=== PATIENT | female | born 1955 | race Two or more races ===

== ENCOUNTER 2016-09-06 16:36 | Emergency (ER) | payer OTHER ==
[~2016-09-06] VITALS: Ht 167.6 cm; Wt 136.1 kg
[~2016-09-06 16:36] MED LIST: ALPR0.25 PO; AMLO10TA2; AMLO10TA2 PO; ATEN1TAB38 PO; CARI-277 PO; FURO80TA3 PO; INSUINJ3 SC; LOSA50TA26 PO; METO2.5T7 PO; NOR10T PO; OMEP20TA44 PO; ONDA4TAB5; PRAVASTATIN PO
[2016-09-06 18:00] LABS: Basophils # (auto) 0.1 uL; Basophils % (auto) 0.9 % (0.0-2.0); Eosinophils # (auto) 0.1 uL; Eosinophils % (auto) 1.5 % (0.0-7.0); Hematocrit 35.9 % (36.0-46.0); Hemoglobin 11.6 g/dL (12.2-16.2); Lymphocytes # (auto) 1.9 uL; Mean Corpuscular Hemoglobin 31.2 pg (28.0-32.0); Mean Corpuscular Hgb Conc. 32.4 g/dL (32.0-36.0); Mean Corpuscular Volume 96.4 fL (80.0-100.0); Mean Platelet Volume 9.4 fL (7.4-10.4); Monocytes # (auto) 0.6 uL; Monocytes % (auto) 8.4 % (0.0-12.0); Neutrophils # (auto) 4.3 uL; Neutrophils % (auto) 62.2 % (37.0-80.0); Platelet Count (auto) 248 10^3/uL (140-450); Red Cell Distribution Width 14.4 % (11.6-16.0); White Blood Cell 6.9 10^3/uL (4.4-10.8)
[2016-09-06 18:07] LABS: INR 1.06 (0.9-1.15); Prothrombin Time 11.4 sec (9.37-12.3)
[2016-09-06 18:19] LABS: Albumin 3.3 g/dL (3.4-5.0); Alkaline Phosphatase 127 U/L (45-117); Anion Gap 10 (5-15); Aspartate Aminotransferase 43 U/L (15-37); BUN/Creatinine Ratio 5.3; Bilirubin, Total 0.5 mg/dL (0.2-1.0); Blood Urea Nitrogen 20 mg/dL (7-18); Calcium 8.4 mg/dL (8.5-10.1); Carbon Dioxide 32 mmol/L (21-32); Chloride 95 mmol/L (98-107); GFR African American 16 mL/min; GFR Non-African American 13 mL/min; Glucose 203 mg/dL (74-106); Magnesium 2.4 mg/dL (1.6-2.6); Potassium 4.7 mmol/L (3.5-5.1); Sodium 137 mmol/L (136-145); Total Protein 8.1 g/dL (6.4-8.2)
[2016-09-06 18:33] LABS: B-Type Natriuretic Peptide 156.34 pg/mL (0-100); Temperature: 23.3 C (20.0-25.0)
[2016-09-06] MEDS ORDERED: cefTRIAXone 1GM/50ML D5W 50 ML IV ONE (19:15)
[2016-09-06] MEDS ORDERED: ASPirin 81 mg TAB PO ONE (19:15)
[2016-09-06] MEDS ORDERED: MORPHINE SULF INJ 2 MG/ML SYRINGE 1ML IV ONE (20:30)
[2016-09-06 22:57] VITALS: BP 132/55
== END 2016-09-06 23:18 | disposition short-term general hospital (02) ==
LOC: ER 16:36 → EDBD 16:36 → ER 23:18
CPT/HCPCS: 36415 ×2; 71010 ×2; 80053 ×2; 83735 ×2; 83880 ×2; 84484 ×2; 85025 ×2; 85610 ×2; 85730 ×2; 93005 ×2; 96361 ×2; 96374 ×2; 99285; J0696 ×2; J2270

== ENCOUNTER 2018-06-20 08:55 | Emergency (ER) | payer OTHER ==
[~2018-06-20] VITALS: Ht 167.6 cm; Wt 142.9 kg
[~2018-06-20 08:55] MED LIST changes: +AMLO10TA12; +AMLO10TA12 PO; -AMLO10TA2; -AMLO10TA2 PO
[2018-06-20] MEDS ORDERED: SODIUM CHLORIDE 0.9% 1,000 ML IV ONE (09:37)
[2018-06-20] MEDS ORDERED: BUSPIRONE (09:59)
[2018-06-20] MEDS ORDERED: LIDOCAINE/PRILOCAINE (09:59)
[2018-06-20] MEDS ORDERED: CLOPIDOGREL (09:59)
[2018-06-20] MEDS ORDERED: HUMULIN (09:59)
[2018-06-20] MEDS ORDERED: ATORVASTATIN (09:59)
[2018-06-20] MEDS ORDERED: NYSTPOW9 (09:59)
[2018-06-20] MEDS ORDERED: LEVEPOW (09:59)
[2018-06-20] MEDS ORDERED: HYDROXYZINE (09:59)
[2018-06-20] MEDS ORDERED: RANEXA (09:59)
[2018-06-20] MEDS ORDERED: ONDANSETRON (09:59)
[2018-06-20] MEDS ORDERED: TRAZODONE (09:59)
[2018-06-20 10:51] LABS: Alanine Aminotransferase 64 U/L (13-56); Albumin 2.5 g/dL (3.4-5.0); Anion Gap 13 (5-15); Calcium 8.3 mg/dL (8.5-10.1); Carbon Dioxide 26 mmol/L (21-32); Chloride 97 mmol/L (98-107); GFR African American 11 mL/min; GFR Non-African American 9 mL/min; Glucose 91 mg/dL (74-106); Magnesium 2.5 mg/dL (1.6-2.6); Potassium 4.5 mmol/L (3.5-5.1); Sodium 136 mmol/L (136-145)
[2018-06-20 10:57] LABS: Alkaline Phosphatase 338 U/L (45-117); Aspartate Aminotransferase 54 U/L (15-37); BUN/Creatinine Ratio 6.7; Bilirubin, Total 0.4 mg/dL (0.2-1.0); Blood Urea Nitrogen 33 mg/dL (7-18); Total Protein 7.6 g/dL (6.4-8.2)
[2018-06-20 14:02] LABS: Basophils # (auto) 0.1 uL; Basophils % (auto) 0.6 % (0.0-2.0); Eosinophils # (auto) 0.2 uL; Eosinophils % (auto) 2.4 % (0.0-7.0); Hematocrit 31.4 % (36.0-46.0); Hemoglobin 10.1 g/dL (12.2-16.2); Lymphocytes # (auto) 1.8 uL; Lymphocytes % (auto) 19.5 % (10.0-50.0); Mean Corpuscular Hemoglobin 29.5 pg (28.0-32.0); Mean Corpuscular Hgb Conc. 32.1 g/dL (32.0-36.0); Mean Corpuscular Volume 91.9 fL (80.0-100.0); Monocytes # (auto) 0.6 uL; Monocytes % (auto) 6.3 % (0.0-12.0); Neutrophils # (auto) 6.5 uL; Neutrophils % (auto) 71.2 % (37.0-80.0); Platelet Count (auto) 224 10^3/uL (140-450); Red Blood Cells 3.42 10^6/uL (4.0-5.20); Red Cell Distribution Width 16.3 % (11.8-14.3); White Blood Cell 9.1 10^3/uL (4.4-10.8)
[2018-06-20] MEDS ORDERED: HYDROcodone-ACET 5/325MG TAB PO ONE (14:15)
[2018-06-20] MEDS ORDERED: cefTRIAXone 1GM/50ML D5W 50 ML IV ONE (16:45)
[2018-06-20] MEDS ORDERED: cefTRIAXone SOD 1,000 MG VL ONE (16:51)
[2018-06-20 20:57] VITALS: BP 95/42
== END 2018-06-20 16:59 | disposition short-term general hospital (02) ==
LOC: EDBD 08:55 → ER 09:01
DX: M47.896 Other spondylosis, lumbar region (principal); M47.892 Other spondylosis, cervical region; E66.01 Morbid (severe) obesity due to excess calories; I13.2 Hypertensive heart and chronic kidney disease with heart failure and with stage 5 chronic kidney disease, or end stage renal disease; E11.22 Type 2 diabetes mellitus with diabetic chronic kidney disease; N18.6 End stage renal disease; I50.9 Heart failure, unspecified; R94.5 Abnormal results of liver function studies; E46 Unspecified protein-calorie malnutrition; L30.9 Dermatitis, unspecified; E78.5 Hyperlipidemia, unspecified; Z68.43 Body mass index [BMI] 50.0-59.9, adult; Z79.899 Other long term (current) drug therapy; Z88.8 Allergy status to other drugs, medicaments and biological substances; Z99.2 Dependence on renal dialysis; Z88.6 Allergy status to analgesic agent; W19.XXXA Unspecified fall, initial encounter; Y93.89 Activity, other specified; Y99.8 Other external cause status; Y92.009 Unspecified place in unspecified non-institutional (private) residence as the place of occurrence of the external cause
CPT/HCPCS: 36415; 71045; 72125; 72131; 80053; 82962; 83735; 83880; 84443; 84484; 85025; 93005; 94761; 96365; 99285; J0696; J7030

== ENCOUNTER 2019-04-30 01:45 | Emergency (ER) | payer OTHER ==
[~2019-04-30] VITALS: Ht 154.9 cm; Wt 136.1 kg
[~2019-04-30 01:45] MED LIST changes: -AMLO10TA12; -AMLO10TA12 PO; +AMLO10TA13; +AMLO10TA13 PO; +ATORVASTATIN; +BUSPIRONE; +CLOPIDOGREL; +HUMULIN; +HYDROXYZINE; +LEVEPOW; +LIDOCAINE/PRILOCAINE; +NYSTPOW9; +ONDA-144; -ONDA4TAB5; +ONDANSETRON; +RANEXA; +TRAZODONE
[2019-04-30 04:07] LABS: Basophils # (auto) 0 uL; Basophils % (auto) 0.7 % (0.0-2.0); Eosinophils # (auto) 0.1 uL; Eosinophils % (auto) 1.8 % (0.0-7.0); Hematocrit 31.6 % (36.0-46.0); Hemoglobin 10.7 g/dL (12.2-16.2); Lymphocytes # (auto) 1.2 uL; Lymphocytes % (auto) 17.3 % (10.0-50.0); Mean Corpuscular Hemoglobin 30.6 pg (28.0-32.0); Mean Corpuscular Hgb Conc. 33.8 g/dL (32.0-36.0); Mean Corpuscular Volume 90.6 fL (80.0-100.0); Monocytes # (auto) 0.4 uL; Monocytes % (auto) 5.9 % (0.0-12.0); Neutrophils # (auto) 5.2 uL; Neutrophils % (auto) 74.3 % (37.0-80.0); Platelet Count (auto) 144 10^3/uL (140-450); Red Blood Cells 3.48 10^6/uL (4.0-5.20); Red Cell Distribution Width 14.8 % (11.8-14.3)
[2019-04-30 04:15] LABS: Albumin 2.5 g/dL (3.4-5.0); BUN/Creatinine Ratio 5.7; Calcium 8.4 mg/dL (8.5-10.1); Potassium 4.6 mmol/L (3.5-5.1)
[2019-04-30 04:17] LABS: Bilirubin, Total 0.9 mg/dL (0.2-1.0); Total Protein 7.2 g/dL (6.4-8.2)
[2019-04-30 04:51] LABS: INR 1.4 (0.9-1.15); Partial Thromboplastin Time 38.6 sec (23.64-32.05)
[2019-04-30] MEDS ORDERED: MORPHINE SULFATE 4 MG/ML SYR/VIAL IV ONE (05:15)
[2019-04-30] MEDS ORDERED: ONDANSETRON HCL 4 MG/2 ML VIAL IV ONE (05:15)
[2019-04-30 09:35] VITALS: BP 169/75
== END 2019-04-30 10:01 | disposition short-term general hospital (02) ==
LOC: EDBD 01:45 → ER 01:49
DX: F03.90 Unspecified dementia, unspecified severity, without behavioral disturbance, psychotic disturbance, mood disturbance, and anxiety (principal); I67.4 Hypertensive encephalopathy; I13.2 Hypertensive heart and chronic kidney disease with heart failure and with stage 5 chronic kidney disease, or end stage renal disease; E11.22 Type 2 diabetes mellitus with diabetic chronic kidney disease; N18.6 End stage renal disease; I50.9 Heart failure, unspecified; Z99.2 Dependence on renal dialysis; Z79.4 Long term (current) use of insulin; Z79.899 Other long term (current) drug therapy; Z88.8 Allergy status to other drugs, medicaments and biological substances
CPT/HCPCS: 36415; 70450; 71045; 73700; 80053; 83605; 85025; 85610; 85730; 87040; 93005; 96374; 96375; 99285; J2270; J2405

== ENCOUNTER 2019-06-12 08:44 | Inpatient (IN) | payer OTHER ==
[~2019-06-12] VITALS: Ht 157.5 cm; Wt 135.6 kg
[2019-06-12 10:00] LABS: Albumin 2.7 g/dL (3.4-5.0); BUN/Creatinine Ratio 8.5; Basophils # (auto) 0.1 uL; Basophils % (auto) 0.9 % (0.0-2.0); Calcium 8.4 mg/dL (8.5-10.1); Eosinophils # (auto) 0.1 uL; Eosinophils % (auto) 1.9 % (0.0-7.0); Hemoglobin 9.7 g/dL (12.2-16.2); Lymphocytes # (auto) 1.8 uL; Lymphocytes % (auto) 22.5 % (10.0-50.0); Magnesium 2.3 mg/dL (1.6-2.6); Mean Corpuscular Hemoglobin 30.5 pg (28.0-32.0); Mean Corpuscular Hgb Conc. 33.3 g/dL (32.0-36.0); Mean Corpuscular Volume 91.6 fL (80.0-100.0); Monocytes # (auto) 0.4 uL; Monocytes % (auto) 5.6 % (0.0-12.0); Neutrophils # (auto) 5.4 uL; Neutrophils % (auto) 69.1 % (37.0-80.0); Platelet Count (auto) 177 10^3/uL (140-450); Potassium 5.1 mmol/L (3.5-5.1); Red Blood Cells 3.16 10^6/uL (4.0-5.20); Red Cell Distribution Width 17.5 % (11.8-14.3); White Blood Cell 7.8 10^3/uL (4.4-10.8)
[2019-06-12 10:51] LABS: INR 1.26 (0.9-1.15); Partial Thromboplastin Time 33.7 sec (23.64-32.05)
[2019-06-12] MEDS ORDERED: SODIUM CHLORIDE 0.9% 1,000 ML IV ONE (10:57)
[2019-06-12] MEDS ORDERED: FUROSEMIDE 40 MG/4 ML VIAL IV ONE (13:00)
[2019-06-12] MEDS ORDERED: hydrALAZINE HCL 20 MG/ML VL IV PRN (17:15)
[2019-06-12] MEDS ORDERED: DEXTROSE (50%) 50ML SYRG IV PRN (17:15)
[2019-06-12] MEDS ORDERED: SODIUM ZIRCONIUM CYCL 10 GM PAK PO ONE (17:15)
[2019-06-12] MEDS ORDERED: NITROGLYCERIN 0.4 MG SL TAB SL PRN (17:15)
[2019-06-12] MEDS ORDERED: MORPHINE SULF INJ 2 MG/ML SYRINGE 1ML IV PRN (17:15)
--- NOTE | 2019-06-12 19:56 | NUR ---
received pt from er nurse poc reviewed,
[2019-06-12 20:20] VITALS: BP 153/72
[2019-06-12] MEDS ORDERED: ATOR1TAB PO (20:33)
[2019-06-12] MEDS ORDERED: BUSP5TAB51 PO (20:35)
[2019-06-12] MEDS ORDERED: HYDR-4924 PO (20:35)
[2019-06-12] MEDS ORDERED: DICY10CA12 PO (20:39)
[2019-06-12] MEDS ORDERED: ERGO1CAP6 PO (20:39)
[2019-06-12] MEDS ORDERED: CLOP75TA41 PO (20:39)
[2019-06-12] MEDS ORDERED: BISO5TAB44 PO (20:39)
[2019-06-12] MEDS ORDERED: LEVE250T18 PO (20:39)
[2019-06-12] MEDS ORDERED: SEVE800T10 PO (20:39)
[2019-06-12 21:14] VITALS: BP 153/72
--- NOTE | 2019-06-12 21:37 | NUR ---
Midline Placement: Patient educated on need for midline placement. All risks and benefits explained and all questions and concerns addresses prior to procedure. 4Fr 20cm midline inserted via right brachial vein using Ultrasound. Sterile technique utilized. Blood return obtained from SINGLE lumen and flushed easily with NS using proper technique. Midline secured with saline lock; biodisc and occlusive dressing applied. Primary RN notified. Midline lot #[id number]. INTERNAL LENGTH 20CM EXTERNAL LENGTH 0CM
[2019-06-12] MEDS: InsuLIN REG 1unit/0.01ml Soln (100units/ml) SC SCH (22:00)
--- NOTE | 2019-06-12 22:30 | NUR ---
PT HAS PERIODS OF CONFUSION, BED ALARM PIPE WASHER LIGHT WITHIN REACH, REORIENTED PT TO POC
--- NOTE | 2019-06-12 22:30 | NUR ---
PTS BS 51 CHEN AND JUICE GIVEN, WILL RECHECK
[2019-06-13] MEDS: metroNIDAZOLE 500MG/100ML 100 ML IV SCH ×4 (01:10→22:50)
[2019-06-13] MEDS: CARVEDILOL 3.125 MG TAB PO SCH ×3 (01:11→22:49)
[2019-06-13] MEDS: ACCU-CHEK COMFORT CURVE STRIP VI SCH ×5 (01:12→22:00)
--- NOTE | 2019-06-13 01:59 | NUR ---
PT CONFUSED PULLING OFF ALL CLOTHES, REORIENTED PT TO POC , CALL LIGHT WITHIN REACH, BED ALARM INTACT
--- NOTE | 2019-06-13 03:00 | NUR ---
PARTIAL BED BATH GIVEN TURNED AND REPOSITIONED WITH HOB UP
--- NOTE | 2019-06-13 04:25 | NUR ---
PICTURES TAKEN OF ALL WOUNDS, DRESSING APPLIED
--- NOTE | 2019-06-13 05:27 | NUR ---
PT CONTINUE TO BE CONFUSED, TURNED AND REPOSITIONED, WITH HOB UP RESP EVEN AND UNLABORED
--- NOTE | 2019-06-13 05:55 | NUR ---
DIALYSIS NURSE AT BEDSIDE
[2019-06-13] MEDS: InsuLIN REG 1unit/0.01ml Soln (100units/ml) SC SCH ×4 (06:02→22:00)
[2019-06-13 06:20] LABS: Basophils # (auto) 0.1 uL; Basophils % (auto) 0.8 % (0.0-2.0); Eosinophils # (auto) 0.1 uL; Eosinophils % (auto) 1.6 % (0.0-7.0); Hematocrit 29.1 % (36.0-46.0); Hemoglobin 9.6 g/dL (12.2-16.2); Lymphocytes # (auto) 1.7 uL; Lymphocytes % (auto) 22.6 % (10.0-50.0); Mean Corpuscular Hemoglobin 30.4 pg (28.0-32.0); Mean Corpuscular Volume 92.3 fL (80.0-100.0); Monocytes # (auto) 0.4 uL; Monocytes % (auto) 5.5 % (0.0-12.0); Neutrophils # (auto) 5.1 uL; Neutrophils % (auto) 69.5 % (37.0-80.0); Platelet Count (auto) 190 10^3/uL (140-450); Red Blood Cells 3.15 10^6/uL (4.0-5.20); Red Cell Distribution Width 17.3 % (11.8-14.3); White Blood Cell 7.4 10^3/uL (4.4-10.8)
[2019-06-13 06:38] LABS: Potassium 5.2 mmol/L (3.5-5.1)
[2019-06-13 06:46] LABS: Albumin 2.7 g/dL (3.4-5.0); BUN/Creatinine Ratio 8.3; Calcium 8.2 mg/dL (8.5-10.1); Total Protein 7.8 g/dL (6.4-8.2)
--- NOTE | 2019-06-13 06:53 | NUR ---
REPORT GIVEN TO AM NURSE POC REVIEWED
[2019-06-13] MEDS ORDERED: SODIUM CHL 0.9% 1000 ML BAG XX ONE (07:00)
[2019-06-13 09:00] VITALS: BP 118/96
--- NOTE | 2019-06-13 09:22 | NUR ---
DIALYSIS PER JOSUE BEHAVIOR CLINICIAN, 4 L REMOVED, 72HR 152/83 BP. PRESSURE DRESSING PLACED TO JOE FISTULA
[2019-06-13] MEDS: cefTRIAXone 1GM/50ML D5W 50 ML IV SCH (09:52)
[2019-06-13] MEDS: FAMOTIDINE 20 MG TAB PO SCH (09:54)
--- NOTE | 2019-06-13 10:10 | NUR ---
LAB MRSA SWAB SENT PER MD ORDER
--- NOTE | 2019-06-13 11:15 | NUR ---
WOUND CARE NOTE: IN TO SEE PATIENT AT THIS TIME PER WOUND CARE CONSULT REQUEST. PATIENT WAS NOTED TO HAVE WOUNDS UPON ADMIT. BEDSIDE NURSE PHOTOGRAPHED WOUNDS AT THAT TIME FOR REFERENCE. PATIENT ADMITTED TO [facility] WITH DIAGNOSIS OF ACUTE/CHRONIC SYSTOLIC HEART FAILURE. CURRENT ELEONORA SCORE IS 16. PATIENT IS ABLE TO SELF TURN/REPOSITION SELF. SHE IS WHEELCHAIR BOUND AT HOME. PATIENT IS NOTED TO HAVE UNSTAGEABLE PRESSURE INJURY OVER SCAR TO INTRAGLUTEAL SACRUM, LEFT ISCHIUM, A DFU TO LEFT LATERAL FOOT, CALLOUSED WOUNDS TO LEFT # 2,3 FINGERS, FUNGAL NAILS WITH XEROSIS/HYPERKERATOSIS TO BILATERAL FEET/LOWER LEGS, SCABBED WOUNDS TO RLE X 2. APPLIED THERAHONEY AND OPTIFOAM GENTLE DRESSINGS TO OPEN WOUNDS ON SACRUM, LEFT ISCHIUM, AND LEFT LATERAL FOOT. SPECIALTY AIR MATTRESS ORDERED AT THIS TIME. PATIENT TO BE PLACED, PENDING DELIVERY BY BRIAN WEISS. RECOMMEND: FREQUENT TURN SCHEDULE Q 2 HOURS, PRN CONDITION PERMITS, WITH PRESSURE REDISTRIBUTION USING PILLOWS/WEDGES, SPECIALTY AIR MATTRESS, DAILY/PRN DRESSING CHANGES TO SACRAL/L ISCHIUM WOUNDS, EOD/PRN DRESSING CHANGE TO LEFT FOOT WOUND, BID APPLICATION WITH HYDRAGUARD BARRIER CREAM TO BLE DRY SKIN, DIETARY CONSULT, SKIN/WOUND CARE PLAN, CONTINUED MONITORING BY WOUND CARE TEAM. Addendum: 06/13/19 at 1534 by Gay Gomez RN Amended: Links added.
[2019-06-13 13:01] VITALS: BP 145/63
[2019-06-13] MEDS ORDERED: AZITHROMYCIN 500MG/ 250ML 250 ML IV ONE (13:15)
--- NOTE | 2019-06-13 16:06 | NUR ---
Nutrition Assessment Notes Please refer to link for full nutrition assessment notes Est energy needs: [id number] kcals (12-15 kcals /kgBW) Est protein needs: 57-71 gms/day (0.8-1.0 gm/kgAdjBW) Will continue to monitor and reassess prn Addendum: 06/13/19 at [address] Amended: Links added.
--- NOTE | 2019-06-13 16:20 | NUR ---
MIDLINE PATIENT PULLED OUT MIDLINE. INFORMED METAL HANGING SUPERVISOR AND PICC RN
--- NOTE | 2019-06-13 16:35 | NUR ---
IV insertion IV access obtained, via clean sterile technique by [facility] gauge [facility] attempt. IV secured properly. No trauma to site. Patient tolerated procedure well.
[2019-06-13] MEDS ORDERED: MIDO2.5T15 PO (17:06)
[2019-06-13 17:09] VITALS: BP 168/93
[2019-06-13] MEDS ORDERED: NITR0.4S29 SL (17:14)
[2019-06-13] MEDS ORDERED: CYCL0.05 EACHEYE (17:14)
[2019-06-13] MEDS ORDERED: TRAZ-181 PO (17:14)
[2019-06-13] MEDS ORDERED: FLUT0.05 NAS (17:14)
[2019-06-13] MEDS ORDERED: ROPI2TAB31 PO (17:14)
[2019-06-13] MEDS ORDERED: SILV-21 TOP (17:14)
[2019-06-13] MEDS ORDERED: RANO500T2 PO (17:14)
[2019-06-13] MEDS ORDERED: NYS5LQ MT (17:14)
[2019-06-13] MEDS ORDERED: IPR002IS HHN (17:14)
[2019-06-13] MEDS ORDERED: THIA100T10 PO (17:14)
[2019-06-13] MEDS ORDERED: FOLI1TAB6 PO (17:14)
[2019-06-13 20:00] VITALS: BP 145/63
[2019-06-13] MEDS ORDERED: HALOPERIDOL LACTATE 5 MG/ML INJ VIAL IM PRN (21:30)
[2019-06-13 22:00] VITALS: BP 146/56
[2019-06-13 22:01] LABS: Folate (Folic Acid) > 24.00 ng/mL (5.38-24)
--- NOTE | 2019-06-13 22:58 | NUR ---
PT YELLING AND SCREAMING AT THE NURSE BECAUSE SHE RECEIVED A PHONE CALL AND GRABBED THE PHONE DISCONNECTING THE CALL.PT STATES THE NURSES HERE ARE NOT DOCTORS SO SHE DOESNT TRUST THEM.PT SPIT OUT HER COREG AND REFUSED TO TAKE IT.ROB TORRES PRIVY TO PT'S REFUSAL OF HER MEDS. PT ANSWERS QUESTIONS APPROPRIATELY AND STATES SHE IS TIRED OF BEING HERE AND WANTS TO GO HOME. SITTER AT BEDSIDE.
[2019-06-14] MEDS: InsuLIN REG 1unit/0.01ml Soln (100units/ml) SC SCH ×3 (05:23→17:00)
[2019-06-14 06:02] VITALS: BP 170/73
[2019-06-14] MEDS: ACCU-CHEK COMFORT CURVE STRIP VI SCH ×3 (06:09→17:00)
[2019-06-14] MEDS: metroNIDAZOLE 500MG/100ML 100 ML IV SCH ×2 (06:09→14:15)
[2019-06-14] MEDS: cefTRIAXone 1GM/50ML D5W 50 ML IV SCH (08:49)
[2019-06-14 09:00] VITALS: BP 152/95
[2019-06-14] MEDS: CARVEDILOL 3.125 MG TAB PO SCH (09:34)
[2019-06-14] MEDS: FAMOTIDINE 20 MG TAB PO SCH (09:34)
[2019-06-14] MEDS ORDERED: AZITHROMYCIN 500MG/ 250ML 250 ML IV SCH (10:00)
--- NOTE | 2019-06-14 10:11 | NUR ---
ON UNIT PATIENT RETURNED FROM [facility]. PATIENT REFUSED VQ SCAN. WILL NOTIFY
--- NOTE | 2019-06-14 10:50 | NUR ---
PHONE CALL RECEIVED PHONE CALL FROM STEVE FROM [facility] RE: PATIENT TRANSFER TO [facility]
[2019-06-14 13:00] VITALS: BP 150/75
--- NOTE | 2019-06-14 13:56 | NUR ---
[facility] PHONE CALL MARCO FROM [facility] CALLED RE: PATIENT STATUS ON ROOM. PATIENT BEING TRANSFERRED TO [facility]. DR JANIA SPEARS MD. ROOM #322. REPORT OT BE GIVEN TO JONATHAN . PICKUP WILL BE APPROXIMATELY AT 1630 Addendum: 06/14/19 at 1418 by JOYCE SANCHEZ RN RN CORRECT TIME SPEECH THERAPIST EARLY INTERVENTION 1830 NOT 1630
--- NOTE | 2019-06-14 14:45 | NUR ---
PT REFUSED ELECTROENCEPHALOGRAM. RN JOYCE AWARE.
--- NOTE | 2019-06-14 15:30 | NUR ---
EEG PATIENT REFUSED EEG
[2019-06-14 17:00] VITALS: BP 145/69
[2019-06-14] MEDS ORDERED: LORazepam 2MG/ML-1ML VIAL IV PRN (17:00)
--- NOTE | 2019-06-14 17:00 | NUR ---
WOUND CARE WOUND CARE PERFORMED PER MD ORDERS. WOUND PHOTOS TAKEN
--- NOTE | 2019-06-14 18:50 | NUR ---
report report given to SHERYL Givens at [facility]. All questions/concerns answered.
--- NOTE | 2019-06-14 19:06 | NUR ---
[facility]IVED FOR TRANSPORT. NO S/S OF DISTRESS, SOB OR PAIN NOTED ON DEPARTURE
== END 2019-06-14 19:10 | disposition short-term general hospital (02) | DRG 70 ==
LOC: ER 08:44 → EDBD 08:44 → TELE 08:45 → TELE-CENTR 20:12
PROVIDERS: ADMIT Nurse Practitioner Acute Care; ATTEND Family Medicine
PROC: 5A1D70Z Performance of Urinary Filtration, Intermittent, Less than 6 Hours Per Day (ICD-10-PCS; principal; 2019-06-13)
DX: G93.41 Metabolic encephalopathy (principal); I50.23 Acute on chronic systolic (congestive) heart failure; N18.6 End stage renal disease; J18.9 Pneumonia, unspecified organism; I48.20 Chronic atrial fibrillation, unspecified; I13.2 Hypertensive heart and chronic kidney disease with heart failure and with stage 5 chronic kidney disease, or end stage renal disease; D68.59 Other primary thrombophilia; Z68.43 Body mass index [BMI] 50.0-59.9, adult; E87.5 Hyperkalemia; E66.01 Morbid (severe) obesity due to excess calories; I25.10 Atherosclerotic heart disease of native coronary artery without angina pectoris; F29 Unspecified psychosis not due to a substance or known physiological condition; D63.8 Anemia in other chronic diseases classified elsewhere; E11.621 Type 2 diabetes mellitus with foot ulcer; L97.519 Non-pressure chronic ulcer of other part of right foot with unspecified severity; I48.91 Unspecified atrial fibrillation; E11.22 Type 2 diabetes mellitus with diabetic chronic kidney disease; F32.9 Major depressive disorder, single episode, unspecified; E11.40 Type 2 diabetes mellitus with diabetic neuropathy, unspecified; E78.5 Hyperlipidemia, unspecified; L97.529 Non-pressure chronic ulcer of other part of left foot with unspecified severity; Z99.2 Dependence on renal dialysis; Z91.14 Patient's other noncompliance with medication regimen; Z95.5 Presence of coronary angioplasty implant and graft; Z79.899 Other long term (current) drug therapy; Z83.3 Family history of diabetes mellitus; Z82.49 Family history of ischemic heart disease and other diseases of the circulatory system; Z91.15 Patient's noncompliance with renal dialysis
CPT/HCPCS: 36415; 70450; 71045; 80053; 82607; 82746; 82962; 83036; 83690; 83735; 84443; 84484; 85025; 85379; 85610; 85730; 87040; 87077; 87081; 87186; 87804; 90935; 93005; 93970; 97163; G0378; J0696; J1642; J1815; J3490

== ENCOUNTER 2019-09-17 09:20 | Inpatient (IN) | payer OTHER ==
[~2019-09-17] VITALS: Ht 170.2 cm; Wt 128.3 kg
[~2019-09-17 09:20] MED LIST changes: -ALPR0.25 PO; -AMLO10TA13; -AMLO10TA13 PO; -ATEN1TAB38 PO; +ATOR1TAB PO; -ATORVASTATIN; +BUSP5TAB51 PO; -BUSPIRONE; -CARI-277 PO; +CLOP75TA41 PO; -CLOPIDOGREL; +CYCL0.05 EACHEYE; +DICY10CA12 PO; +ERGO1CAP6 PO; +FLUT0.05 NAS; +FOLI1TAB6 PO; -FURO80TA3 PO; -HUMULIN; +HYDR-4924 PO; -HYDROXYZINE; +IPR002IS HHN; +LEVE250T18 PO; -LEVEPOW; -LIDOCAINE/PRILOCAINE; -LOSA50TA26 PO; -METO2.5T7 PO; +MIDO2.5T15 PO; +NITR0.4S29 SL; +NYS5LQ MT; -NYSTPOW9; -OMEP20TA44 PO; -ONDANSETRON; -PRAVASTATIN PO; -RANEXA; +RANO500T2 PO; +ROPI2TAB31 PO; +SEVE800T10 PO; +SILV-21 TOP; +THIA100T10 PO; +TRAZ-181 PO; -TRAZODONE
[2019-09-17 10:34] LABS: Basophils # (auto) 0.1 10 ^3/uL (0-0.2); Basophils % (auto) 0.6 % (0.0-2.0); Eosinophils # (auto) 0.1 10 ^3/uL (0-0.8); Eosinophils % (auto) 1.1 % (0.0-7.0); Hematocrit 31.5 % (36.0-46.0); Hemoglobin 10.1 g/dL (12.2-16.2); Lymphocytes # (auto) 1.3 10 ^3/uL (0.4-5.4); Lymphocytes % (auto) 16.2 % (10.0-50.0); Mean Corpuscular Volume 90.6 fL (80.0-100.0); Monocytes # (auto) 0.6 10 ^3/uL (0-1.3); Monocytes % (auto) 7.8 % (0.0-12.0); Neutrophils # (auto) 6.1 10 ^3/uL (1.6-8.6); Neutrophils % (auto) 74.3 % (37.0-80.0); Platelet Count (auto) 169 10^3/uL (140-450); Red Blood Cells 3.48 10^6/uL (4.0-5.20); Red Cell Distribution Width 15.8 % (11.8-14.3); White Blood Cell 8.2 10^3/uL (4.4-10.8)
[2019-09-17 10:53] LABS: INR 1.25 (0.9-1.15); Partial Thromboplastin Time 33.6 sec (23.64-32.05)
[2019-09-17] MEDS ORDERED: cefTRIAXone 1GM/50ML D5W 50 ML IV ONE (11:30)
[2019-09-17] MEDS ORDERED: AZITHROMYCIN 500MG/ 250ML 250 ML IV ONE (11:30)
[2019-09-17 12:19] LABS: Albumin 2.2 g/dL (3.4-5.0); Calcium 8.8 mg/dL (8.5-10.1); Potassium 5.1 mmol/L (3.5-5.1)
[2019-09-17 12:23] LABS: BUN/Creatinine Ratio 11.6; Total Protein 7.2 g/dL (6.4-8.2)
--- NOTE | 2019-09-17 14:05 | NUR ---
Telemetry admit from ER HEATHER MOY admitted to Telemetry unit after SBAR received. Patient oriented to Megha Laguerre, primary RN, unit, room, bed, and unit policies regarding patient care and visiting hours. Patient now on continuous telemetry monitoring, tele box # 11 and telemetry reading on arrival to unit is . Patient placed on bedside oxygen, weighed by bedscale and encouraged to call if they need something. All questions and concerns addressed, patient verbalized understanding. Note:
[2019-09-17] MEDS ORDERED: HYDROcodone-ACET 5/325MG TAB PO PRN (14:45)
[2019-09-17] MEDS ORDERED: DEXTROSE (50%) 50ML SYRG IV PRN (14:45)
[2019-09-17] MEDS ORDERED: MORPHINE SULF INJ 2 MG/ML SYRINGE 1ML IV PRN (14:45)
[2019-09-17] MEDS ORDERED: NITROGLYCERIN 0.4 MG SL TAB SL PRN (14:45)
[2019-09-17] MEDS ORDERED: ACETAMINOPHEN 500 MG TAB PO PRN (14:45)
[2019-09-17] MEDS: metroNIDAZOLE 500MG/100ML 100 ML IV SCH ×2 (14:48→21:58)
[2019-09-17] MEDS ORDERED: VANCOMYCIN PER PHARMACY 0 MG IV SCH (15:00)
[2019-09-17] MEDS ORDERED: VANCOMYCIN 1GM/250ML 250 ML IV ONE (15:10)
[2019-09-17] MEDS ORDERED: SODIUM ZIRCONIUM CYCL 10 GM PAK PO ONE (16:00)
[2019-09-17 17:00] VITALS: BP 127/55
[2019-09-17] MEDS: ACCU-CHEK COMFORT CURVE STRIP VI SCH ×2 (17:09→21:58)
[2019-09-17] MEDS: InsuLIN REG 1unit/0.01ml Soln (100units/ml) SC SCH ×2 (17:41→21:50)
[2019-09-17] MEDS: MORPHINE SULF INJ 2 MG/ML SYRINGE 1ML IV PRN (17:41)
[2019-09-17 18:17] VITALS: BP 127/55
--- NOTE | 2019-09-17 20:00 | NUR ---
open note assumed care of pt. upon entering room pt awake, alert and oriented x4. pt on 2L no dsitress noted or expressed. pt denied any pain. pt updated on plan of care. pt bed locked, low and 2x rails up. call light in reach, this nurse to round q1hr and prn. pt on iso for covid rule out.
[2019-09-17 21:45] VITALS: BP 127/50
[2019-09-17] MEDS: busPIRone HCL 10 MG TAB PO SCH (21:58)
[2019-09-17] MEDS: FAMOTIDINE 20 MG TAB PO SCH (21:58)
[2019-09-17] MEDS ORDERED: PATIENTS OWN MEDICATION (Buspirone Hcl 5 MG) PO SCH (22:00)
[2019-09-18] MEDS: MORPHINE SULF INJ 2 MG/ML SYRINGE 1ML IV PRN ×2 (02:50→17:14)
[2019-09-18 04:47] VITALS: BP 152/77
[2019-09-18 04:55] LABS: Basophils # (auto) 0 10 ^3/uL (0-0.2); Basophils % (auto) 0.5 % (0.0-2.0); Eosinophils # (auto) 0.2 10 ^3/uL (0-0.8); Eosinophils % (auto) 1.9 % (0.0-7.0); Hematocrit 32.4 % (36.0-46.0); Hemoglobin 10.3 g/dL (12.2-16.2); Lymphocytes # (auto) 1.4 10 ^3/uL (0.4-5.4); Lymphocytes % (auto) 16.4 % (10.0-50.0); Mean Corpuscular Hemoglobin 29.2 pg (28.0-32.0); Mean Corpuscular Hgb Conc. 31.9 g/dL (32.0-36.0); Mean Corpuscular Volume 91.7 fL (80.0-100.0); Monocytes # (auto) 0.5 10 ^3/uL (0-1.3); Monocytes % (auto) 6.2 % (0.0-12.0); Neutrophils # (auto) 6.5 10 ^3/uL (1.6-8.6); Platelet Count (auto) 173 10^3/uL (140-450); Red Blood Cells 3.53 10^6/uL (4.0-5.20); Red Cell Distribution Width 15.8 % (11.8-14.3); White Blood Cell 8.7 10^3/uL (4.4-10.8)
--- NOTE | 2019-09-18 05:10 | NUR ---
Report given to Mckenna SAUCEDO for transfer to room 218A.
[2019-09-18 05:11] LABS: BUN/Creatinine Ratio 11.5; Calcium 8.9 mg/dL (8.5-10.1); Potassium 4.9 mmol/L (3.5-5.1)
[2019-09-18 05:21] LABS: INR 1.33 (0.9-1.15); Partial Thromboplastin Time 34.9 sec (23.64-32.05)
--- NOTE | 2019-09-18 05:30 | NUR ---
ASSUMED CARE OF PATIENT REPORT RECEIVED FROM MELISSA SAUCEDO. NO ACUTE S/S OF DISTRESS NOTED. WILL CONTINUE CARE.
[2019-09-18] MEDS: metroNIDAZOLE 500MG/100ML 100 ML IV SCH ×3 (06:35→22:02)
[2019-09-18] MEDS: ACCU-CHEK COMFORT CURVE STRIP VI SCH ×4 (06:35→22:03)
[2019-09-18] MEDS: InsuLIN REG 1unit/0.01ml Soln (100units/ml) SC SCH ×4 (06:35→22:07)
[2019-09-18] MEDS ORDERED: ALBUMIN 25% 100 ML IV ONE (07:45)
[2019-09-18] MEDS ORDERED: SODIUM CHL 0.9% 1000 ML BAG XX ONE (07:45)
--- NOTE | 2019-09-18 08:00 | NUR ---
Opening Shift Note Received report from night nurse. Assumed care of patient, patient laying in bed with HOB elevated, A&Ox4. Respirations are even and non-labored, no S/S of distress or SOB noted, denies any pain at the moment. Patient instructed on POC and to call for assistance as needed, call light within reach. Safety measures in place, bed set to lowest locked position x 2 rails up. Will continue to monitor for changes Q1hr and PRN.
[2019-09-18] MEDS ORDERED: LIDOCAINE HCL 5 % TOP OINT 35 GM TOP PRN (08:30)
[2019-09-18 09:00] VITALS: BP 130/49
[2019-09-18] MEDS ORDERED: cefTRIAXone 1GM/50ML D5W 50 ML IV SCH (09:00)
[2019-09-18] MEDS ORDERED: MIDODRINE HCL 10 MG TAB PO ONE (09:15)
--- NOTE | 2019-09-18 10:15 | NUR ---
[facility] Call received from Ballast Cleaning Operator form [facility]. Updated on requested information, verbalized understanding.
--- NOTE | 2019-09-18 10:45 | NUR ---
WOUND CARE NOTE: WOUND CONSULT ORDERED FOR MULTIPLE WOUNDS. PATIENT ADMITTED TO [facility] WITH DIAGNOSIS OF BLE FOOT ULCERS, CURRENT ELEONORA SCORE IS 15. WOUND PHOTOS TAKEN OF WOUNDS ON SACRUM, BILATERAL FEET/HEELS FOR REFERENCE BY BEDSIDE NURSE, UPON ADMIT. ATTEMPTED TO SEE PATIENT AT THIS TIME, BUT PATIENT IS RECEIVING DIALYSIS. WILL ATTEMPT TO SEE AGAIN AT LATER TIME.
[2019-09-18] MEDS: busPIRone HCL 10 MG TAB PO SCH ×2 (12:03→22:02)
--- NOTE | 2019-09-18 12:04 | NUR ---
Nutrition Followup Notes Please see attached link for complete assessment Est. Needs ABW (93 kg): [id number] (20-23 kcal/kgABW r/t HD), 111-130 gms pro (1.2-1.4 gms/kgBW r/t HD wounds severe hypoalb). Will continue to monitor pertinent labs and reassess nutrient need prn Addendum: 09/18/19 at [address] Amended: Links added.
--- NOTE | 2019-09-18 12:20 | NUR ---
Contacted Radiology about patient's CT spoke with Leigh, she stated they needed clarification if CT to be done with or without contrast. Placed call to Dr. Bowers order clarified, CT to be done without contrast. Notified Leigh in Radiology she verbalized understanding.
[2019-09-18 13:00] VITALS: BP 153/88
--- NOTE | 2019-09-18 13:01 | NUR ---
1250 09/18/19 I faxed transfer order and Notice Regarding Post Stabilization to [facility]. I faxed today's MD progress notes, labs, vitals and medication list to [facility].
--- NOTE | 2019-09-18 14:47 | NUR ---
Radiology at Bedside. Taking patient down for CT of right foot
--- NOTE | 2019-09-18 16:00 | NUR ---
WOUND CARE NOTE: SPECIALTY AIR MATTRESS ORDERED AT THIS TIME. PATIENT TO BE PLACED, PENDING DELIVERY BY BRIAN CAMPOS
--- NOTE | 2019-09-18 16:47 | NUR ---
0788 09/18/19 I called [facility] and spoke with reimbursement analyst Edmund, she said they did receive the transfer order and Physical Damage Appraiser Umu is working on a bed assignment at [facility]. They will contact nurse's station when bed becomes available.
[2019-09-18 17:00] VITALS: BP 155/88
--- NOTE | 2019-09-18 17:30 | NUR ---
WOUND CARE NOTE: IN TO SEE PATIENT AT THIS TIME FOR WOUND EVALUATION. PATIENT WAS NOTED TO HAVE SACRAL ULCER, RIGHT HEEL ULCER, AND DFU TO RIGHT FOOT UPON ADMIT. WOUND PHOTOS TAKEN AT THAT TIME BY BEDSIDE NURSE FOR REFERENCE. PATIENT STATES THAT SHE HAS HAD HER WOUNDS FOR SEVERAL MONTHS. SHE ALSO HAS A HARD CAST TO HER LEFT LEG D/T FRACTURE AFTER FALLING OUT OF BED MANY MONTHS AGO. PATIENT HAS ELEONORA SCORE OF 15. SHE IS ABLE TO ASSIST WITH HER TURNING/REPOSITIONING. PATIENT STATES THAT SHE OFTEN SITS AT SIDE OF BED WHEN AT HOME. PATIENT TURNED TO LEFT SIDE. SHE IS NOTED TO HAVE AN OLD STAGE 4 PRESSURE ULCER THAT HAS CLOSED WITH RAISED COLLAGEN SCARRING. THERE ARE MULTI SMALL OPEN 1 X 1 CM OPEN WOUNDS NESTLED WITHIN THE SCARRING. WOUND BED IS PALE RED, WITH WHITE/BROWN SCAR/PERIWOUND. SCANT SEROUS DRAINAGE NOTED. APPLIED ZGUARD, OPTIFOAM GENTLE SACRAL DRESSING. RIGHT HEEL HAS A 4 X 4 CM SOFT BLACK ESCHAR UNSTAGEABLE PRESSURE ULCER NOTED. WOUND IS BOGGY, DRAINING LIGHT AMOUNTS OF SEROUS DRAINAGE. APPLIED OPTIFOAM AG AND KERLIX WRAP. RIGHT MEDIAL PLANTAR FOOT HAS A DFU, CLOSED WITH A HARD CALLOUS. LEFT OPEN TO AIR. PATIENT HAS A CONSULT REQUEST ORDERED FOR PODIATRY WITH DR. BUENO. WILL DEFER ALL PODIATRY RECOMMENDATIONS TO DR. BUENO, IN THE MEANTIME, PATIENT SHOULD RECEIVE DAILY DRY DRESSINGS, CONSISTING OF OPTIFOAM AG AND KERLIX WRAP. RECOMMENDATIONS ON SACRAL ULCER: BID ZGUARD, OPTIFOAM SACRAL DRESSING, FREQUENT TURN SCHEDULE Q 2 HOURS, PRN CONDITION PERMITS, WITH PRESSURE REDISTRIBUTION USING PILLOWS/WEDGES, SPECIALTY AIR MATTRESS, OFFLOADING OF BILATERAL HEELS USING PILLOWS/WEDGES, DIETARY CONSULT SKIN/WOUND CARE PLAN, CONTINUED MONITORING BY WOUND CARE TEAM. Addendum: 09/18/19 at 1831 by Gay Gomez RN Amended: Links added.
--- NOTE | 2019-09-18 18:38 | NUR ---
Call from [facility] Call received from [facility] from [facility] stated patient will be transferred today September 17 at 2200, patient will be going to [facility] to the Telemetry floor Bed 408. Number to call to give report is . Accepting MD is Dr. Mills. Per [facility] please provide copies of all diagnostic test and copy of patient's chart along with transfer summary. Will endorsed information to incoming nurse.
--- NOTE | 2019-09-18 19:18 | NUR ---
Closing Note Endorsed care of patient to night Mayi Don
--- NOTE | 2019-09-18 19:25 | NUR ---
OPENING SHIFT NOTE Assumed care of patient who is A&O x3. Currently on 2L NC with no s/s of distress. Denies pain at this time. Fistula in left upper arm noted.Thrill and bruit present. PIV in right AC intact and patent. Flushed with 10ml NS. Patient is currently on bedrest, non-weight bearing. POC discussed and patient verbalized understanding. Repositioned to offset pressure from sacrum. Bed is in low locked position with side rails up x2. Call light is within reach and patient encouraged to call for assistance when needed. Will continue to monitor for changes Q 1hr and PRN.
--- NOTE | 2019-09-18 19:40 | NUR ---
Wound pictures taken for reference prior to transfer. Right foot and sacrum redressed. Patient tolerated well.
[2019-09-18 20:00] VITALS: BP 169/79
[2019-09-18] MEDS ORDERED: EPOETIN ALFA 10,000 UNIT/1 ML VIAL SC ONE (21:00)
--- NOTE | 2019-09-18 21:30 | NUR ---
Patient is agitated, refusing to complete signing transfer papers. Patient states that she is aware she will be transferred to [facility] and is agreeable with the transfer. Adding that she has plenty of paperwork from [facility] at home that she has already signed, and it is her right not to sign if she chooses. Educated patient that these documents are for our records, however, she continues to refuse.
[2019-09-18 22:00] VITALS: BP 169/79
--- NOTE | 2019-09-18 22:00 | NUR ---
Received call from Shandra at [facility]. Informed this RN that transportation would be delayed until approx. 2330. Patient updated.
[2019-09-18] MEDS: FAMOTIDINE 20 MG TAB PO SCH (22:03)
--- NOTE | 2019-09-18 22:45 | NUR ---
REPORT Spoke with Jennifer at [facility] to give report on Patient.
--- NOTE | 2019-09-19 00:45 | NUR ---
Received call from [place] transportation department. Stated that Due to a high volume of 911 calls, EMS will be delayed for approximately two hours.
--- NOTE | 2019-09-19 02:29 | NUR ---
Received call from [facility], stating that a unit is being sent from [place] to transport the patient to [facility]. ETA is approx. one hour. Patient updated.
--- NOTE | 2019-09-19 03:50 | NUR ---
Patient transferred by [facility] via [facility] protocol. No s/s of distress at time of departure. Patient left with all belongings in her possession. Off unit at 0350.
== END 2019-09-19 03:50 | disposition short-term general hospital (02) | DRG 637 ==
LOC: EDBD 09:20 → ER 09:20 → TELE 09:21 → TELE-EAST 16:04 → TELE-CENTR 09-18 05:29
PROVIDERS: ADMIT Nurse Practitioner Acute Care; ATTEND Internal Medicine
DX: E11.621 Type 2 diabetes mellitus with foot ulcer (principal); J18.9 Pneumonia, unspecified organism; I13.2 Hypertensive heart and chronic kidney disease with heart failure and with stage 5 chronic kidney disease, or end stage renal disease; L97.419 Non-pressure chronic ulcer of right heel and midfoot with unspecified severity; E44.0 Moderate protein-calorie malnutrition; E87.1 Hypo-osmolality and hyponatremia; Z68.41 Body mass index [BMI] 40.0-44.9, adult; I50.42 Chronic combined systolic (congestive) and diastolic (congestive) heart failure; N18.6 End stage renal disease; L97.519 Non-pressure chronic ulcer of other part of right foot with unspecified severity; L97.529 Non-pressure chronic ulcer of other part of left foot with unspecified severity; E87.5 Hyperkalemia; E11.42 Type 2 diabetes mellitus with diabetic polyneuropathy; D63.1 Anemia in chronic kidney disease; E66.01 Morbid (severe) obesity due to excess calories; Z20.828 Contact with and (suspected) exposure to other viral communicable diseases; L03.012 Cellulitis of left finger; F32.9 Major depressive disorder, single episode, unspecified; L03.011 Cellulitis of right finger; E11.22 Type 2 diabetes mellitus with diabetic chronic kidney disease; E11.622 Type 2 diabetes mellitus with other skin ulcer; E78.5 Hyperlipidemia, unspecified; Z82.49 Family history of ischemic heart disease and other diseases of the circulatory system; Z99.2 Dependence on renal dialysis; Z83.3 Family history of diabetes mellitus; Z87.440 Personal history of urinary (tract) infections; Z87.891 Personal history of nicotine dependence; Z79.4 Long term (current) use of insulin; Z87.19 Personal history of other diseases of the digestive system
CPT/HCPCS: 36415; 71045; 73590; 73600; 73700; 80048; 80053; 80202; 82962; 83036; 83605; 83880; 84484; 85025; 85610; 85730; 87040; 87070; 87081; 87804; 87880; 90935; 93005; 93926; 99291; G0378; J0696; J0885; J1815; J3490; P9047

== ENCOUNTER 2020-03-17 15:53 | Emergency (ER) | payer OTHER ==
[~2020-03-17] VITALS: Ht 167.6 cm; Wt 136.1 kg
[~2020-03-17 15:53] MED LIST changes: +ERGO1CAP12 PO; -ERGO1CAP6 PO
[2020-03-17] MEDS ORDERED: ASPirin 81 mg TAB PO ONE (16:15)
[2020-03-17 18:59] LABS: Basophils # (auto) 0.1 10 ^3/uL (0-0.2); Basophils % (auto) 1.1 % (0.0-2.0); Eosinophils # (auto) 0.3 10 ^3/uL (0-0.8); Eosinophils % (auto) 5.6 % (0.0-7.0); Hematocrit 32.3 % (36.0-46.0); Hemoglobin 10.7 g/dL (12.2-16.2); Lymphocytes # (auto) 1.1 10 ^3/uL (0.4-5.4); Lymphocytes % (auto) 20.1 % (10.0-50.0); Mean Corpuscular Hemoglobin 29.6 pg (28.0-32.0); Mean Corpuscular Hgb Conc. 33.1 g/dL (32.0-36.0); Mean Corpuscular Volume 89.5 fL (80.0-100.0); Monocytes # (auto) 0.5 10 ^3/uL (0-1.3); Monocytes % (auto) 9.1 % (0.0-12.0); Neutrophils # (auto) 3.5 10 ^3/uL (1.6-8.6); Neutrophils % (auto) 64.1 % (37.0-80.0); Platelet Count (auto) 152 10^3/uL (140-450); Red Blood Cells 3.61 10^6/uL (4.0-5.20); Red Cell Distribution Width 15.9 % (11.8-14.3); White Blood Cell 5.5 10^3/uL (4.4-10.8)
[2020-03-17 19:15] LABS: Albumin 2.8 g/dL (3.4-5.0); Anion Gap 8 (5-15); Blood Urea Nitrogen 33 mg/dL (7-18); Calcium 8.2 mg/dL (8.5-10.1); Carbon Dioxide 32 mmol/L (21-32); Chloride 94 mmol/L (98-107); Glucose 208 mg/dL (74-106); Sodium 134 mmol/L (136-145)
[2020-03-17 19:17] LABS: BUN/Creatinine Ratio 7.1; GFR African American 12 mL/min; GFR Non-African American 10 mL/min
[2020-03-17 19:28] LABS: Alanine Aminotransferase 38 U/L (13-56); Alkaline Phosphatase 435 U/L (45-117); Aspartate Aminotransferase 36 U/L (15-37); Bilirubin, Total 0.5 mg/dL (0.2-1.0); Total Protein 7.6 g/dL (6.4-8.2)
[2020-03-17] MEDS ORDERED: NITROGLYCERIN 0.2MG/HR TOPICAL PATCH TD ONE (21:00)
[2020-03-17 23:00] VITALS: BP 132/51
[2020-03-17] MEDS ORDERED: diphenhdrAMINE HCL 50 MG/1 ML VL IV ONE (23:30)
== END 2020-03-18 08:01 | disposition short-term general hospital (02) ==
LOC: ER 15:53 → EDUNIT# 15:53 → EDBD 15:53 → ER 03-18 08:01
DX: R07.89 Other chest pain (principal); E11.22 Type 2 diabetes mellitus with diabetic chronic kidney disease; I13.2 Hypertensive heart and chronic kidney disease with heart failure and with stage 5 chronic kidney disease, or end stage renal disease; I50.9 Heart failure, unspecified; N18.6 End stage renal disease; E78.5 Hyperlipidemia, unspecified; Z99.2 Dependence on renal dialysis; Z86.2 Personal history of diseases of the blood and blood-forming organs and certain disorders involving the immune mechanism; Z98.61 Coronary angioplasty status; Z87.891 Personal history of nicotine dependence; Z79.899 Other long term (current) drug therapy; Z88.8 Allergy status to other drugs, medicaments and biological substances; Z88.1 Allergy status to other antibiotic agents; Z88.6 Allergy status to analgesic agent
CPT/HCPCS: 36415; 71045; 80053; 84443; 84484; 85025; 93005; 96374; 99285; J1200

== ENCOUNTER 2020-10-29 19:55 | Emergency (ER) | payer OTHER ==
[~2020-10-29] VITALS: Ht 160 cm; Wt 140.6 kg
[~2020-10-29 19:55] MED LIST changes: +ATOR-47 PO; -ATOR1TAB PO; -CLOP75TA41 PO; +CLOP75TA70 PO
[2020-10-29] MEDS ORDERED: SODIUM CHLORIDE 0.9% 500 ML IVB ONE (20:15)
[2020-10-29] MEDS ORDERED: ACETAMINOPHEN 325 MG TAB PO ONE (20:45)
[2020-10-29] MEDS ORDERED: CLINDAMYCIN 600MG IV 50 ML IV ONE (22:00)
[2020-10-29 22:13] LABS: Basophils # (auto) 0.1 10 ^3/uL (0-0.2); Basophils % (auto) 0.8 % (0.0-2.0); Eosinophils # (auto) 0 10 ^3/uL (0-0.8); Hematocrit 35.9 % (36.0-46.0); Hemoglobin 12.1 g/dL (12.2-16.2); Lymphocytes # (auto) 0.7 10 ^3/uL (0.4-5.4); Lymphocytes % (auto) 4.5 % (10.0-50.0); Mean Corpuscular Hemoglobin 29.3 pg (28.0-32.0); Mean Corpuscular Hgb Conc. 33.7 g/dL (32.0-36.0); Mean Corpuscular Volume 87.1 fL (80.0-100.0); Monocytes # (auto) 0.7 10 ^3/uL (0-1.3); Neutrophils # (auto) 14.6 10 ^3/uL (1.6-8.6); Neutrophils % (auto) 90.7 % (37.0-80.0); Platelet Count (auto) 149 10^3/uL (140-450); Red Blood Cells 4.13 10^6/uL (4.0-5.20); Red Cell Distribution Width 15.4 % (11.8-14.3); White Blood Cell 16.1 10^3/uL (4.4-10.8)
[2020-10-29 22:31] LABS: Albumin 2.6 g/dL (3.4-5.0); Calcium 8.6 mg/dL (8.5-10.1); Potassium 4.8 mmol/L (3.5-5.1)
[2020-10-29 22:33] LABS: Lactic Acid w/Reflex 2.2 mmol/L (0.4-2.0)
[2020-10-29 22:37] LABS: BUN/Creatinine Ratio 7.9; Bilirubin, Total 1.7 mg/dL (0.2-1.0); Magnesium 2.5 mg/dL (1.6-2.6); Total Protein 8.4 g/dL (6.4-8.2)
[2020-10-30] MEDS ORDERED: ONDANSETRON HCL 4 MG/2 ML VIAL IV ONE (00:45)
[2020-10-30] MEDS ORDERED: MORPHINE SULFATE 4 MG/ML SYR/VIAL IV ONE (00:45)
[2020-10-30 06:08] VITALS: BP 122/53
== END 2020-10-30 06:29 | disposition still patient (30) ==
LOC: EDBD 19:55 → ER 19:55
DX: R50.9 Fever, unspecified (principal); M54.9 Dorsalgia, unspecified; R21 Rash and other nonspecific skin eruption; E11.22 Type 2 diabetes mellitus with diabetic chronic kidney disease; I12.9 Hypertensive chronic kidney disease with stage 1 through stage 4 chronic kidney disease, or unspecified chronic kidney disease; N18.9 Chronic kidney disease, unspecified; Z87.891 Personal history of nicotine dependence; Z79.4 Long term (current) use of insulin; Z79.899 Other long term (current) drug therapy; Z88.8 Allergy status to other drugs, medicaments and biological substances; Z20.822 Contact with and (suspected) exposure to COVID-19
CPT/HCPCS: 36415; 71045; 80053; 83605; 83735; 85025; 87040; 87426; 93005; 96361; 96365; 96366; 96375; 99285; J2270; J2405; J3490; J7030

== ENCOUNTER 2020-11-12 14:31 | Emergency (ER) | payer OTHER ==
[~2020-11-12] VITALS: Ht 152.4 cm; Wt 136.1 kg
[2020-11-12 15:11] LABS: Basophils # (auto) 0.1 10 ^3/uL (0-0.2); Basophils % (auto) 0.6 % (0.0-2.0); Eosinophils # (auto) 0.1 10 ^3/uL (0-0.8); Eosinophils % (auto) 1.2 % (0.0-7.0); Hematocrit 28.6 % (36.0-46.0); Hemoglobin 9.8 g/dL (12.2-16.2); Lymphocytes # (auto) 1.1 10 ^3/uL (0.4-5.4); Lymphocytes % (auto) 8.9 % (10.0-50.0); Mean Corpuscular Hemoglobin 30.3 pg (28.0-32.0); Mean Corpuscular Hgb Conc. 34.1 g/dL (32.0-36.0); Mean Corpuscular Volume 88.9 fL (80.0-100.0); Monocytes # (auto) 0.5 10 ^3/uL (0-1.3); Monocytes % (auto) 4.3 % (0.0-12.0); Neutrophils # (auto) 10.1 10 ^3/uL (1.6-8.6); Platelet Count (auto) 142 10^3/uL (140-450); Red Blood Cells 3.22 10^6/uL (4.0-5.20); Red Cell Distribution Width 15.5 % (11.8-14.3); White Blood Cell 11.9 10^3/uL (4.4-10.8)
[2020-11-12 15:23] LABS: Albumin 1.9 g/dL (3.4-5.0); Calcium 8.1 mg/dL (8.5-10.1)
[2020-11-12 15:26] LABS: Bilirubin, Total 0.9 mg/dL (0.2-1.0); Total Protein 6.8 g/dL (6.4-8.2)
[2020-11-12 15:28] LABS: Potassium 5.6 mmol/L (3.5-5.1)
[2020-11-12] MEDS ORDERED: SODIUM BICARBONATE 8.4 % INJ 50ML VIAL IV ONE (15:45)
[2020-11-12] MEDS ORDERED: CALCIUM GLUC 1,000mg/50ml-NS 50 ML IV ONE (15:45)
[2020-11-12] MEDS ORDERED: SODIUM ZIRCONIUM CYCL 10 GM PAK PO ONE (18:45)
[2020-11-12] MEDS ORDERED: HYDROmorphone HCL 2 MG/ML VL IV ONE (20:15)
[2020-11-12 22:00] VITALS: BP 109/60
[2020-11-13] MEDS ORDERED: SODIUM CHL 0.9% 1000 ML BAG XX ONE (07:00)
[2020-11-13] MEDS ORDERED: EPOETIN ALFA-EPBX 4,000 UNIT/ML VIAL SC ONE (21:00)
== END 2020-11-13 00:05 | disposition home or self-care (01) ==
LOC: ER 14:31 → EDBD 14:31 → ER 21:38
DX: E87.5 Hyperkalemia (principal); E11.22 Type 2 diabetes mellitus with diabetic chronic kidney disease; I13.2 Hypertensive heart and chronic kidney disease with heart failure and with stage 5 chronic kidney disease, or end stage renal disease; I50.9 Heart failure, unspecified; N18.6 End stage renal disease; Z87.891 Personal history of nicotine dependence
CPT/HCPCS: 36415; 80053; 85025; 85049; 93005; 96365; 96375; 99285; J0610; J1170